=== PATIENT | female | born 1975 | race Hispanic/Latino ===

== ENCOUNTER 2018-01-16 12:44 | Emergency (ER) | payer OTHER ==
[2018-01-16 12:45] VITALS: BMI 26.2
[2018-01-16 13:25] LABS: BASO # 0.04 K/mm3 (0.0-2.0); BASO % 0.5 % (0.0-3.0); EOS # 0.2 (0.0-0.7); EOS % 2.3 % (1.5-5.0); GRAN # 4.74 (1.4-6.5); GRAN % 61.1 % (50.0-68.0); HEMOGLOBIN 14.5 g/dL (12.0-16.0); LYMPH # 2.3 (1.2-3.4); LYMPH % 29.9 % (22.0-35.0); MEAN CELL VOLUME 86.9 fl (80.0-105.0); MEAN CORPUSCULAR HEMOGLOBIN 30.2 pg (25.0-35.0); MEAN CORPUSCULAR HGB CONC 34.8 g/dl (31.0-37.0); MEAN PLATELET VOLUME 9.9 fl (7.0-11.0); MONO # 0.5 (0.1-0.6); MONO % 6.2 % (1.0-6.0); RBC 4.8 10^6/uL (3.5-6.1); RED CELL DISTRIBUTION WIDTH 13.2 % (11.5-14.5); WHITE BLOOD COUNT 7.8 10^3/ul (4.5-11.0)
[2018-01-16] MEDS ORDERED: Sodium Chloride 0.9% 1,000 ML IV ONE (13:28)
[2018-01-16 13:35] LABS: ALB/GLOB RATIO 1.4 (1.1-1.8); ALBUMIN 4.6 g/dL (3.0-4.8); ALT/SGPT 22 U/L (7-56); AST/SGOT 27 U/L (14-36); BLOOD UREA NITROGEN 12 mg/dL (7-21); CALCIUM 10.2 mg/dL (8.4-10.5); GFR AFRICAN-AMERICAN > 60; GFR NON-AFRICAN AMERICAN > 60
[2018-01-16 13:46] LABS: TROPONIN I < 0.01 ng/mL
--- NOTE | 2018-01-16 14:25 | ED PDOC ---
Arrival/HPI - General Historian: Patient, Spouse - History of Present Illness Time/Duration: 4-6 hours Symptom Onset: Sudden Symptom Course: Improving Activities at Onset: Eating Context: Home <Dimas Valenzuela - Last Filed: 01/16/18 16:46> <David Pollock DO - Last Filed: 01/16/18 17:51> - General Chief Complaint: Seizure Time Seen by Provider: 01/16/18 12:54 - History of Present Illness Narrative History of Present Illness (Text): 01/16/18 16:24 This is a 42 year old female with PMH of depression, anxiety and ADD presenting to the ED for unwitnessed seizure that occurred this afternoon. Patient was standing in kitchen and eating and then began shaking and was found on the floor unconscious. Patient's was in backyard and found patient in the kitchen on the floor and called 911. Patient awoke a few minutes later but has no memory of the event. Patient was confused after regaining consciousness but remembers the shaking prior to LOC. Patient hit her head on the floor. Patient denies incontinence and tongue biting during event, but does admit to biting her right cheek. Patient admits to nausea, vomiting x2 NBNB, lightheadedness, and headache. Patient denies fevers, chest pain, SOB, chills, diarrhea, abdominal pain, recent travel, and sick contacts at home. Patient denies any drug use. Primary doctor is Radha Tate. (Dimas Valenzuela) Past Medical History - Provider Review Nursing Documentation Reviewed: Yes - Past History Past History: No Previous - Infectious Disease Hx of Infectious Diseases: None - Psychiatric Hx Anxiety: Yes Hx Depression: Yes Hx Substance Use: No - Past Surgical History Past Surgical History: No Previous - Suicidal Assessment Feels Threatened In Home Enviroment: No <Dimas Valenzuela - Last Filed: 01/16/18 16:46> Family/Social History - Physician Review Nursing Documentation Reviewed: Yes Family/Social History: Unknown Family HX Smoking Status: Never Smoked Hx Alcohol Use: No Hx Substance Use: No <Dimas Valenzuela - Last Filed: 01/16/18 16:46> Allergies/Home Meds <Dimas Valenzuela - Last Filed: 01/16/18 16:46> <David Pollock DO - Last Filed: 01/16/18 17:51> Allergies/Adverse Reactions: Allergies amoxicillin Allergy (Verified 01/16/18 12:50) RASH Penicillins Allergy (Verified 01/16/18 12:50) RASH Home Medications: Home Meds Medication Instructions Recorded Confirmed Ethinyl Estradiol;Ethinyl Es 1 tab PO DAILY 08/11/12 01/16/18 [Seasonique] Gabapentin [Neurontin] 1 tab PO DAILY 01/16/18 01/16/18 Lisdexamfetamine Dimesylate 1 tab PO DAILY 01/16/18 01/16/18 [Vyvanse] buPROPion [Wellbutrin] 1 tab PO DAILY 01/16/18 01/16/18 Review of Systems - Physician Review All systems were reviewed & negative as marked: Yes - Review of Systems Constitutional: absent: Weight Change, Fevers, Night Sweats Eyes: Normal ENT: Normal Respiratory: Normal Cardiovascular: Normal. absent: Chest Pain, Palpitations Gastrointestinal: Normal. absent: Abdominal Pain, Hematochezia, Hematemesis Genitourinary Female: Normal Musculoskeletal: Normal Skin: Normal Neurological: Headache. absent: Focal Weakness, Facial Droop Hemo/Lymphatic: Normal <BlairRuben diazmckenna - Last Filed: 01/16/18 16:46> Physical Exam Vital Signs Reviewed: Yes Temperature: Afebrile Blood Pressure: Normal Pulse: Tachycardic Respiratory Rate: Normal Appearance: Positive for: Well-Appearing, Non-Toxic, Comfortable Pain Distress: None Mental Status: Positive for: Alert and Oriented X 3 Finger Stick Blood Glucose: 168 - Systems Exam Head: Present: Atraumatic, Normocephalic Pupils: Present: PERRL Extroacular Muscles: Present: EOMI Conjunctiva: Present: Normal Mouth: Present: Moist Mucous Membranes Neck: Present: Normal Range of Motion Respiratory/Chest: Present: Clear to Auscultation, Good Air Exchange. No: Respiratory Distress, Accessory Muscle Use Cardiovascular: Present: Regular Rate and Rhythm, Normal S1, S2. No: Murmurs Abdomen: No: Tenderness, Distention, Peritoneal Signs Back: Present: Normal Inspection Upper Extremity: Present: Normal Inspection. No: Cyanosis, Edema Lower Extremity: Present: Normal Inspection. No: Edema Neurological: Present: CN II-XII Intact, Speech Normal, Motor Func Grossly Intact, Normal Sensory Function Skin: Present: Warm, Dry, Normal Color. No: Rashes Psychiatric: Present: Alert, Oriented x 3, Normal Insight, Normal Concentration <BlairJaz diazmckenna - Last Filed: 01/16/18 16:46> Vital Signs Temp Pulse Resp BP Pulse Ox 01/16/18 16:33 99.1 F 87 18 150/88 87 L 01/16/18 16:32 99.1 F 87 18 150/88 98 01/16/18 14:45 103 H 18 152/91 H 99 01/16/18 12:56 98.5 F 125 H 17 143/89 99 Medical Decision Making <BlairJaz diazflorina - Last Filed: 01/16/18 16:46> - Lab Interpretations I have reviewed the lab results: Yes - RAD Interpretation Wrecker Driver: Radiologist - EKG Interpretation Interpreted by ED Physician: Yes Type: 12 lead EKG <David Pollock DO - Last Filed: 01/16/18 17:51> ED Course and Treatment: 01/16/18 14:29 Impression: This is a 42 year old female presenting to ED for unwitnessed LOC event. Plan: -U/A, culture -Drug screen -Cxray, CT head -EKG -CBC, CMP -Urine Progress (Dimas Valenzuela) 01/16/18 Patient Seen With Resident: In agreement with resident note which contains more details about the patient. Patient was seen and evaluated with resident. Came up with plan and treatment together. 01/16/18 Chest X-ray: Creator : Adeel Collier MD IMPRESSION: No active disease. Head CT without contrast: Creator : Adeel Collier MD IMPRESSION: No acute intracranial abnormalities. No significant findings to account for the clinical presentation. 01/16/18 EKG shows sinus tachycardia at 124 BPM with incomplete RBBB. Interpreted by me. (David Pollock DO) - Lab Interpretations Lab Results: 01/16/18 13:10 01/16/18 13:10 Lab Results 01/16/18 15:07: Urine Color Yellow, Urine Appearance Clear, Urine pH 6.0, Ur Specific Ambrose 1.025, Urine Protein Negative, Urine Glucose (UA) Negative, Urine Ketones Negative, Urine Blood Negative, Urine Nitrate Negative, Urine Bilirubin Negative, Urine Urobilinogen 0.2, Ur Leukocyte Esterase Negative 01/16/18 15:07: Urine Opiates Screen Negative, Urine Methadone Screen Negative, Ur Barbiturates Screen Negative, Ur Phencyclidine Scrn Negative, Ur Amphetamines Screen Positive H, U Benzodiazepines Scrn Negative, U Oth Cocaine Metabols Negative, U Cannabinoids Screen Negative 01/16/18 13:10: Alcohol, Quantitative < 10 01/16/18 13:10: Sodium 141, Potassium 4.5, Chloride 105, Carbon Dioxide 16 L, Anion Gap 25 H, BUN 12, Creatinine 1.0, Est GFR ( Amer) > 60, Est GFR ( Non-Af Amer) > 60, Random Glucose 166 H, Calcium 10.2, Total Bilirubin 0.4, AST 27, ALT 22, Alkaline Phosphatase 51, Lactate Dehydrogenase 449, Total Creatine Kinase 205, Troponin I < 0.01, Total Protein 7.9, Albumin 4.6, Globulin 3.3, Albumin/Globulin Ratio 1.4 01/16/18 13:10: WBC 7.8, RBC 4.80, Hgb 14.5, Hct 41.7, MCV 86.9, MCH 30.2, MCHC 34.8, RDW 13.2, Plt Count 371, MPV 9.9, Gran % 61.1, Lymph % (Auto) 29.9, Lynn % (Auto) 6.2 H, Eos % (Auto) 2.3, Baso % (Auto) 0.5, Gran # 4.74, Lymph # (Auto ) 2.3, Lynn # (Auto) 0.5, Eos # (Auto) 0.2, Baso # (Auto) 0.04 - RAD Interpretation Radiology Orders: 01/16/18 13:11 HEAD W/O CONTRAST [CT] Stat 01/16/18 13:12 CHEST PORTABLE [RAD] Stat - Medication Orders Current Medication Orders: Discontinued Medications Sodium Chloride (Sodium Chloride 0.9%) 1,000 mls @ 250 mls/hr IV .Q4H ONE Stop: 01/16/18 17:27 Last Admin: 01/16/18 14:34 Dose: 250 mls/hr eMAR Start Stop Document 01/16/18 14:34 EWO (Rec: 01/16/18 14:34 EWO [id number]) Intravenous Solution Start Date 01/16/18 Start Time 13:10 End Date 01/16/18 - PA / CHIPS SCREEN TENDER / Resident Statement VERNON has reviewed & agrees with the documentation as recorded. VERNON has examined the patient and agrees with the treatment plan. <Dimas Valenzuela - Last Filed: 01/16/18 16:46> Disposition/Present on Arrival - Present on Arrival Any Indicators Present on Arrival: No History of DVT/PE: No History of Uncontrolled Diabetes: No Urinary Catheter: No History of Decub. Ulcer: No History Surgical Site Infection Following: None - Disposition Have Diagnosis and Disposition been Completed?: Yes Disposition Time: 16:30 <Dimas Valenzuela - Last Filed: 01/16/18 16:46> - Disposition Disposition Time: 15:30 <David Pollock DO - Last Filed: 01/16/18 17:51> - Disposition Diagnosis: Seizure-like activity Condition: GOOD Discharge Instructions (ExitCare): Seizures, Adult (DC) Additional Instructions: PORSCHE SAGE, thank you for letting us take care of you today. The emergency medical care you received today was directed at your acute symptoms. If you were prescribed any medication, please fill it and take as directed. It may take several days for your symptoms to resolve. Return to the Emergency Department if your symptoms worsen, do not improve, or if you have any other problems. Please contact your doctor or call one of the physicians/clinics you have been referred to that are listed on the Patient Visit Information form that is included in your discharge packet. Bring any paperwork you were given at discharge with you along with any medications you are taking to your follow up visit. Our treatment cannot replace ongoing medical care by a primary care provider outside of the emergency department. Thank you for allowing the [facility] team to be part of your care today. Continue taking your medications as prescribed. Follow up with your primary care doctor or our neurologist adapted physical education teacher in 1-2 days for re-evaluation and further management. Return to the emergency room if you have any concerns. Referrals: Jose Lepe MD [Staff Provider] - Follow up with primary Forms: [employer] (Sinhala), WORK NOTE
[2018-01-16 15:15] VITALS: RESP 18
[2018-01-16 15:20] LABS: URINE BILIRUBIN NEGATIVE (NEGATIVE); URINE BLOOD NEGATIVE (NEGATIVE); URINE GLUCOSE (UA) NEGATIVE (NEGATIVE); URINE LEUKOCYTE ESTERASE NEGATIVE Leu/uL (NEGATIVE); URINE PROTEIN NEGATIVE mg/dL (<30 mg/dL); URINE UROBILINOGEN 0.2 E.U./dL (<1 E.U./dL)
--- NOTE | 2018-01-16 15:23 | CT ---
PROCEDURE: CT HEAD WITHOUT CONTRAST. HISTORY: ? new onset seizure COMPARISON: None available. TECHNIQUE: Axial computed tomography images were obtained through the head/brain without intravenous contrast. Coronal and sagittal reconstructed images. Radiation dose: Total exam DLP = 691.76 mGy-cm. This CT exam was performed using one or more of the following dose reduction techniques: Automated exposure control, adjustment of the mA and/or kV according to patient size, and/or use of iterative reconstruction technique. FINDINGS: HEMORRHAGE: No intracranial hemorrhage. BRAIN: No mass effect or edema. No atrophy or chronic microvascular ischemic changes. VENTRICLES: Unremarkable. No hydrocephalus. CALVARIUM: Unremarkable. PARANASAL SINUSES: Unremarkable as visualized. No significant inflammatory changes. MASTOID AIR CELLS: Unremarkable as visualized. No inflammatory changes. OTHER FINDINGS: None. IMPRESSION: No acute intracranial abnormalities. No significant findings to account for the clinical presentation.
--- NOTE | 2018-01-16 15:23 | RAD ---
HISTORY: r/o infiltrate COMPARISON: No prior. FINDINGS: LUNGS: No active pulmonary disease. PLEURA: No significant pleural effusion identified, no pneumothorax apparent. CARDIOVASCULAR: Normal. OSSEOUS STRUCTURES: No significant abnormalities. VISUALIZED UPPER ABDOMEN: Normal. OTHER FINDINGS: None. IMPRESSION: No active disease.
[2018-01-16 15:26] LABS: URINE APPEARANCE CLEAR (CLEAR); URINE COLOR YELLOW (YELLOW)
[2018-01-16 15:35] LABS: BENZODIAZEPINES, UR NEGATIVE (NEGATIVE)
[2018-01-16 15:43] LABS: BARBITURATES, UR NEGATIVE (NEGATIVE); OPIATES, UR NEGATIVE (NEGATIVE); PHENCYCLIDINE, UR NEGATIVE (NEGATIVE)
[2018-01-16 16:34] VITALS: BP 150/88; PULSE 87; TEMP 99.1; O2SAT 87
--- NOTE | 2018-01-17 08:33 | CARD ---
APPROVED REPORT EKG Measurement Heart [id number] ID [id number] <Conclusion> Sinus tachycardia Incomplete right bundle branch block
== END 2018-01-16 16:32 | disposition home or self-care (01) ==
LOC: ED 12:44
DX: R56.9 Unspecified convulsions (principal)
CPT/HCPCS: 70450; 71045; 80053; 80320; 80324; 80345; 80346; 80349; 80353; 80358; 80361; 81003; 82550; 83615; 83992; 84484; 85025; 87086; 93005; 99285; J7030